=== PATIENT | male | born 1985 | race Caucasian/White ===

== ENCOUNTER 2020-02-16 11:46 | Emergency (ER) | payer OTHER ==
[~2020-02-16 11:46] MED LIST: CETIRIZINE10 MG PO; EPIPEN 2-PAK1 MG/ML IJ; KEFLEX500 M1 PO; Nizoral 2%15 GM T; PREDNISONE10 MG PO
[2020-02-16] MEDS ORDERED: CLINDAMYCIN HC300 MG PO ×2 (12:31→12:57)
[2020-02-16] MEDS ORDERED: IBUPROFEN600 MG PO ×2 (12:31→12:57)
== END 2020-02-16 11:53 | disposition home or self-care (01) ==
LOC: ED 11:46
DX: K08.89 Other specified disorders of teeth and supporting structures (principal); F17.200 Nicotine dependence, unspecified, uncomplicated; Z88.8 Allergy status to other drugs, medicaments and biological substances; Z79.899 Other long term (current) drug therapy

== ENCOUNTER 2021-07-13 02:49 | Emergency (ER) | payer OTHER ==
[~2021-07-13] VITALS: Ht 182.8 cm; Wt 81.6 kg
[~2021-07-13 02:49] MED LIST changes: +CLINDAMYCIN HC300 MG PO; +IBUPROFEN600 MG PO
== END 2021-07-13 04:39 | disposition home or self-care (01) ==
LOC: ED 02:49
DX: S39.012A Strain of muscle, fascia and tendon of lower back, initial encounter (principal); M25.512 Pain in left shoulder; Z79.899 Other long term (current) drug therapy; Z88.1 Allergy status to other antibiotic agents; V49.88XA Car occupant (driver) (passenger) injured in other specified transport accidents, initial encounter; Y93.89 Activity, other specified; Y92.413 State road as the place of occurrence of the external cause; Y99.9 Unspecified external cause status

== ENCOUNTER → 2023-06-17 | Outpatient (CLI) | payer OTHER | END | disposition home or self-care (01) | LOC: RAD 14:37 | PROVIDERS: ATTEND Family Medicine | DX: R06.02 Shortness of breath (principal) ==